=== PATIENT | male | born 1965 | race Caucasian/White ===

== ENCOUNTER 2019-03-06 11:46 | Inpatient (IN) | payer MEDICAID ==
[~2019-03-06] VITALS: Ht 180.3 cm; Wt 81.6 kg
[~2019-03-06 11:46] MED LIST: LACTATED RINGERS 1,000 ML IV SCH; TRANEXAMIC ACID 1,000 MG in SODIUM CHLORIDE 0.9% 100 ML IV NR
[2019-03-06] MEDS ORDERED: VANCOMYCIN HCL 500 MG/VIAL ONE (12:14)
[2019-03-06] MEDS ORDERED: BUPIVACAINE/EPINEPH/PF 0.25%/0.0005 10ML ONE (12:14)
[2019-03-06] MEDS ORDERED: EPINEPHRINE 1:1000 1 MG/ML AMP ONE (12:25)
[2019-03-06] MEDS ORDERED: BACITRACIN 50,000 UNITS/VIAL ONE (12:26)
[2019-03-06] MEDS ORDERED: IBUP-2029 PO (13:21)
[2019-03-06] MEDS ORDERED: ROPIVACAINE HCL 10MG/ML 20 ML VIAL EPI ONE (13:24)
[2019-03-06] MEDS ORDERED: GLYCOPYRROLATE 0.2 MG/ML 2ML VIAL ONE (13:26)
[2019-03-06] MEDS ORDERED: FENTANYL CITRATE/PF 50MCG/ML 2ML VIAL ONE ×2 (13:26→14:16)
[2019-03-06] MEDS ORDERED: CEFAZOLIN SODIUM 1000MG/VIAL ONE (13:26)
[2019-03-06] MEDS ORDERED: SODIUM CHLORIDE 0.9% 10ML VIAL ONE (13:26)
[2019-03-06] MEDS ORDERED: PROPOFOL 200MG/20ML VIAL IV ONE (13:26)
[2019-03-06] MEDS ORDERED: LIDOCAINE HCL/PF 1% 10 MG/ML 5ML VIAL ONE (13:26)
[2019-03-06] MEDS ORDERED: ROCURONIUM BROMIDE 10MG/ML VIAL 5ML IV ONE ×2 (13:26→14:18)
[2019-03-06] MEDS ORDERED: NEOSTIGMINE METHYLSULFATE 1MG/ML 10 ML VIAL ONE (13:26)
[2019-03-06] MEDS ORDERED: SUCCINYLCHOLINE CHLORIDE 200MG/10ML IV ONE (13:26)
[2019-03-06] MEDS ORDERED: MIDAZOLAM HCL 2 MG/2 ML VIAL ONE (13:26)
[2019-03-06] MEDS ORDERED: DEXAMETHASONE 4MG/ML 1ML VIAL ONE ×2 (13:26→13:46)
[2019-03-06] MEDS ORDERED: EPHEDRINE SULFATE 50MG/ML VIAL ONE (13:26)
[2019-03-06] MEDS ORDERED: METOCLOPRAMIDE HCL 10MG/2ML VIAL ONE (13:27)
[2019-03-06] MEDS ORDERED: ONDANSETRON HCL 4MG/2ML INJ ONE (13:27)
[2019-03-06] MEDS ORDERED: SKIN ADHESIVE 0.7 GM EA TOP ONE (15:00)
[2019-03-06] MEDS ORDERED: MEPERIDINE HCL/PF 25MG/ML CPJ IV PRN (16:00)
[2019-03-06] MEDS ORDERED: HYDROMORPHONE HCL/PF 2MG/ML CPJ IV PRN (16:00)
[2019-03-06] MEDS ORDERED: ONDANSETRON HCL 4MG/2ML INJ IV PRN ×2 (16:00→19:15)
[2019-03-06] MEDS ORDERED: LABETALOL 5MG/ML SYR 20 MG/4 ML SYRINGE IV PRN (16:00)
[2019-03-06] MEDS ORDERED: TRANEXAMIC ACID 1,000 MG in SODIUM CHLORIDE 0.9% 100 ML IV SCH (17:15)
[2019-03-06 17:43] LABS: HEMATOCRIT. 39.9 % (42.0-52.0); HEMOGLOBIN. 13.6 g/dL (14.0-18.0); MEAN PLATELET VOLUME 8.4 fl (7.4-10.4); PLATELET 262 x1000/uL (130-400); RED BLOOD CELL COUNT 4.25 mill/uL (4.7-6.1); RED CELL DISTRIBUTION WIDTH 13.9 % (11.6-14.6)
[2019-03-06 18:16] LABS: PLATELET ESTIMATE NORMAL
[2019-03-06] MEDS ORDERED: ZOLPIDEM TARTRATE 5MG TABLET PO PRN (19:15)
[2019-03-06] MEDS ORDERED: ACETAMINOPHEN 325MG TABLET PO PRN (19:15)
[2019-03-06] MEDS ORDERED: HYDROCODONE/ACETAMINOPHEN 10/325MG TABLET PO PRN (19:15)
[2019-03-06] MEDS ORDERED: HYDROMORPHONE PCA 10MG/50ML IV PRN (19:15)
[2019-03-06] MEDS ORDERED: ONDANSETRON INJ IV PRN (19:15)
[2019-03-06] MEDS ORDERED: NALOXONE INJ IV PRN (19:15)
[2019-03-06] MEDS ORDERED: MAGNESIUM HYDROXIDE 400MG/5ML 30ML UDC PO PRN (19:15)
[2019-03-06 21:00] VITALS: BP 130/80
[2019-03-07] VITALS: BP 111/75
[2019-03-07] MEDS: CEFAZOLIN 2,000 MG in DEXT 5% WATER 100 ML IV SCH ×2 (02:03→11:41)
[2019-03-07 04:00] VITALS: BP 120/83
[2019-03-07 07:02] LABS: BASOPHILS % 0.3 % (0.0-2.0); HEMATOCRIT. 40.3 % (42.0-52.0); HEMOGLOBIN. 13.6 g/dL (14.0-18.0); LYMPHOCYTES % 8.2 % (20.0-50.0); MEAN CORPUSCULAR HEMOGLOBIN 31.6 pg (28.0-32.0); MEAN CORPUSCULAR VOLUME 93.8 fL (80.0-94.0); MEAN PLATELET VOLUME 8.7 fl (7.4-10.4); NEUTROPHILS % 82.5 % (40.0-76.0); PLATELET 323 x1000/uL (130-400); RED CELL DISTRIBUTION WIDTH 13.9 % (11.6-14.6)
[2019-03-07 08:00] VITALS: BP 126/80
[2019-03-07] MEDS: DOCUSATE SODIUM 100MG CAPSULE PO SCH ×2 (09:52→16:46)
[2019-03-07 12:00] VITALS: BP 123/79
[2019-03-07] MEDS: HYDROCODONE/ACETAMINOPHEN 10/325MG TABLET PO PRN (14:42)
[2019-03-07 16:00] VITALS: BP 100/62
[2019-03-07 20:00] VITALS: BP 121/75
[2019-03-07] MEDS ORDERED: ENOXAPARIN 40MG/0.4ML SYR SUBCUT SCH (21:00)
[2019-03-08] VITALS: BP 124/75
[2019-03-08 04:00] VITALS: BP 130/62
[2019-03-08 06:35] LABS: BASOPHILS % 0.7 % (0.0-2.0); EOSINOPHILS % 1.3 % (0.0-5.0); HEMATOCRIT. 33.8 % (42.0-52.0); HEMOGLOBIN. 11.6 g/dL (14.0-18.0); LYMPHOCYTES % 19.8 % (20.0-50.0); MEAN PLATELET VOLUME 8.5 fl (7.4-10.4); MONOCYTES % 7.7 % (2.0-8.0); NEUTROPHILS % 70.5 % (40.0-76.0); PLATELET 244 x1000/uL (130-400); RED BLOOD CELL COUNT 3.64 mill/uL (4.7-6.1)
[2019-03-08 07:01] LABS: CHLORIDE 102 mEq/L (98-107)
[2019-03-08] MEDS: DOCUSATE SODIUM 100MG CAPSULE PO SCH (08:59)
[2019-03-08] MEDS: HYDROCODONE/ACETAMINOPHEN 10/325MG TABLET PO PRN (11:37)
[2019-03-08 12:20] VITALS: BP 130/78
== END 2019-03-08 14:43 | disposition home or self-care (01) | DRG 315 ==
LOC: OR 11:46 → SURGERY 11:46 → 6EST 23:52
PROVIDERS: ADMIT Orthopaedic Surgery; ATTEND Orthopaedic Surgery
PROC: 0PSF04Z Reposition Right Humeral Shaft with Internal Fixation Device, Open Approach (ICD-10-PCS; principal; 2019-03-06)
PROC: 0PUF07Z Supplement Right Humeral Shaft with Autologous Tissue Substitute, Open Approach (ICD-10-PCS; 2019-03-06)
PROC: 0QB20ZZ Excision of Right Pelvic Bone, Open Approach (ICD-10-PCS; 2019-03-06)
DX: S42.391A Other fracture of shaft of right humerus, initial encounter for closed fracture (principal); M21.331 Wrist drop, right wrist; W18.39XA Other fall on same level, initial encounter; M85.80 Other specified disorders of bone density and structure, unspecified site; Y93.89 Activity, other specified; Y92.89 Other specified places as the place of occurrence of the external cause; Y99.8 Other external cause status
CPT/HCPCS: 36415; 73060; 76000; 80048; 86850; 86900; 97167; 97530; 97535; 97760; J0171; J0330; J0690; J1100; J1170; J1650; J2175; J2250; J2405; J2704; J2710; J2765; J2795; J3010; J3370; J3490; J7040; J7050; J7060